=== PATIENT | male | born 1960 | race Caucasian/White ===

== ENCOUNTER 2017-09-11 07:07 | Day surgery (SDC) | payer BC ==
[~2017-09-11] VITALS: Ht 177.8 cm; Wt 116.8 kg
[2017-09-11] MEDS ORDERED: FISH OIL 1,0001 EAC1 (07:32)
[2017-09-11] MEDS ORDERED: OSTEO BI-FLEX1 EAC2 (07:32)
[2017-09-11] MEDS ORDERED: NASACORT10.8 ML (07:33)
== END 2017-09-11 09:10 | disposition home or self-care (01) ==
LOC: ORSCSDS 07:07
PROVIDERS: Internal Medicine Gastroenterology
PROC: 0DBM8ZX Excision of Descending Colon, Via Natural or Artificial Opening Endoscopic, Diagnostic (ICD-10-PCS; principal; 2017-09-11 08:30)
DX: Z12.11 Encounter for screening for malignant neoplasm of colon (principal); D12.4 Benign neoplasm of descending colon; K64.8 Other hemorrhoids; K57.30 Diverticulosis of large intestine without perforation or abscess without bleeding; F17.220 Nicotine dependence, chewing tobacco, uncomplicated
CPT/HCPCS: 88305; J0330; J1980; J2405; J7120

== ENCOUNTER → 2022-03-22 | Outpatient (CLI) | payer BC ==
[~2022-03-22] MED LIST: FISH OIL 1,0001 EAC1; NASACORT10.8 ML; OSTEO BI-FLEX1 EAC2
== END | disposition home or self-care (01) ==
LOC: LAB 09:05 → LAB SHORT 09:05
DX: D48.5 Neoplasm of uncertain behavior of skin (principal)
CPT/HCPCS: 88305